=== PATIENT | female | born 1985 | race Caucasian/White ===

== ENCOUNTER 2019-09-03 19:20 | Emergency (ER) | payer BC, SELFPAY ==
[2019-09-03 19:25] VITALS: BP 127/89; PULSE 83; RESP 16; TEMP 36.7; O2SAT 99
--- NOTE | 2019-09-03 19:30 | DI.RAD_ITS ---
EXAM: XR CHEST 2V PA LATERAL CLINICAL HISTORY: cough TECHNIQUE: 2D digital imaging was performed. COMPARISON: No exams were available for comparison FINDINGS: MEDIASTINUM: Normal. HEART: Normal. PULMONARY VASCULATURE: Normal. LUNGS: Clear. PLEURAL SPACE: No pleural effusion or pneumothorax. BONE:Normal. OTHER FINDINGS:Normal. IMPRESSION: No acute pulmonary findings. DATA REPOSITORY: RADIATION DOSE DELIVERED:
--- NOTE | 2019-09-03 19:39 | W.ED.GENAD ---
Discharge Plan Disposition Patient Disposition: HOME Condition: Good Discharge Details Chief Complaint: RespSymp Clinical Impression: Viral URI with cough Primary Care Provider: Concha,Local ED Provider: Kaden Potter Home Meds and New Rx's Prescriptions: No Action No Known Home Meds RF: 0 Discharge Instructions Instructions: Upper Respiratory Infection (ED) Additional Instructions: Please take your inhaler, 2 puffs every 4-6 hours to help with her symptoms. At this time your symptoms are consistent with a viral upper respiratory infection. It is very unlikely that this is from coronavirus. At this time you do not have the indications that the CDC would recommend for testing for coronavirus. Out of an abundance of precaution it would be reasonable to self quarantine yourself for a total of 14 days or until completely symptom-free for greater than 24-48 hours. It would be prudent to wear a mask at all times, always wash your hands frequently, follow-up closely with your primary care provider. You can always call their office first. If you notice any worsening of your symptoms, or any new symptoms such as vomiting, diarrhea, fever, chills, shortness of breath, chest pain, numbness, weakness, or fainting, please CALL and then return immediately to the emergency department for reevaluation. Please CALL first and then follow up with your primary care provider as soon as possible for reassessment and reevaluation. As always, it was a pleasure participating in your medical care today. Stand Alone Forms: NEGATIVE COVID-19 SCREENING, Work Release Medical Decision Making <Lew Weiss MD - Last Filed: 09/03/19 19:45> This is a 33-year-old female who presents with day 5 of upper respiratory illness. She has had cough, congestion, feels as if she is had some mild shortness of breath. She had a history of reactive airway disease and use of inhaler as a child. She has not had recent travel or known sick contacts. Patient has normal vital signs temp of 36.7, pulse 83, blood pressure 127/89, respirations 16, 99% sat on room air. Her exam is without acute findings. Discussed with her that she would not not meet criteria at this time for Covid 19 testing. Different diagnosis includes viral syndrome, bronchitis, pneumonia. Patient underwent influenza screen, referred for chest x-ray, given albuterol MDI for her persistent cough and history of reactive airway disease. As the patient presented just prior to change of shift, and the case will be signed out to Dr. Potter. Please see his note regarding final impression and disposition. <Kaden Potter, DO - Last Filed: 09/03/19 21:12> Case was signed out to me by my colleague Dr. Lew Weiss. Please refer to his HPI, physical exam and assessment for plan. Patient was signed out pending x-ray results. X-ray results have returned, no evidence of infiltrate, no evidence of significant effusions, adenopathy, or pulmonary edema. Patient's vital signs remain notably reassuring. No evidence of hypoxemia, tachypnea, or significant respiratory distress. Currently the patient denies any concerning travel history to a high risk area, direct or known indirect exposure to an area and/or patient's with known coronavirus activity. The patient looks notably clinically well, and does not demonstrate evidence of respiratory distress, significant or severe illness, or sepsis. At this time with the patient's history, clinical exam, and clinical symptoms, they are not in line or congruent with current CDC recommendations for testing. Additionally patient currently does not demonstrate symptoms indicative of admission or further observation here. At this time based on the patient's current clinical picture symptoms are likely secondary to a non-coronavirus viral illness. Out of an abundance of precaution taking into account the current level of national concern, the patient's entire clinical picture, and CDC recommendations, the patient can be discharged home. The option and recommendation will be given for a 14-day quarantine. I have recommended to the patient wearing of a mask for the next 14 days, as well as good handwashing techniques. I have also recommended the same things to the patient's significant other who is at bedside. I have confirmed with her printing plate clerk we will try to get a PCP for the patient immediately. I did try to spend extra time explaining symptoms, prognosis, and concerning symptoms however the significant other who is at bedside made it exquisitely clear that he had no interest in hearing any additional information at this time and would like to leave immediately. Respecting his wishes we will discharge. I have extensively reviewed the treatment plan and discharge instructions with the patient. I have addressed all patient concerns at this time. The patient was made aware of what symptoms to monitor for that would warrant a return to the emergency department. I also discussed the importance of calling the patient's PCP, as well as the ED for any concerns or prior to return. Discussed the plan with the patient, they demonstrate verbal understanding and agreement with our assessment and plan at this time. FINDINGS: Lungs: Hyperinflation of the lungs bilaterally which is nonspecific and could represent air trapping from an upper respiratory infection or reactive airway disease. There are no peripheral infiltrates or consolidation. Pleural space: No pleural effusions. Heart/Mediastinum: No hilar fullness or mediastinal adenopathy suggested. Normal heart size. Bones/joints: Unremarkable. IMPRESSION: 1. Nonspecific lung field hyperinflation could represent upper respiratory infection or reactive airway disease. No peripheral infiltrates. 2. No pleural effusions. 3. No evidence of adenopathy. Thank you for allowing us to participate in the care of your patient. Dictated and Authenticated by: Russ Stephen MD 09/03/2019 7:59 PM Eastern Time ([place] & [place]) HPI <Lew Weiss MD - Last Filed: 09/03/19 19:45> General Mode of arrival: ambulatory. Date/Time Provider Initiated Documentation: 09/03/19 19:21. Limitations to Documentation: no limitations. Information obtained by: patient. History of Present Illness 33 year old F presents to the emergency department with the chief complaint of Cough for 5 days, feels short of breath, described as moderate, Quality is described as dull, Patient reports no radiation. Patient started experiencing this day(s) and it has been constant. No relieving factors improve symptom(s), No exacerbating factors reported . Patient notes cough, fever/chills, shortness of breath and other (No leg pain or swelling, no travel, no known sick contacts.). Related Data Home Medications Medication Instructions Recorded Confirmed Unknown [No Known Home Meds] 09/03/19 09/03/19 Allergies Allergy/AdvReac Type Severity Reaction Status Date / Time amoxicillin Allergy Hives Unverified 09/03/19 19:28 General Stated Complaint: RespSymp AUGUSTO: 4 Review of Systems <Lew Weiss MD - Last Filed: 09/03/19 19:45> Narrative: See HPI, 6 systems reviewed and otherwise negative Exam <Lew Weiss MD - Last Filed: 09/03/19 19:45> Narrative Exam Narrative: GEN: awake, alert, oriented 3. Pleasant, well groomed, interactive. HEAD: Normocephalic, atraumatic ENT: Mucous membranes moist, oropharynx unremarkable, External ear exam unremarkable EYES: PERRL, EOMI NECK: Full ROM, no DEVON, no menigismus CHEST/RESP: Nontender, clear to auscultation bilateral, no wheeze/rhonchi/rales CARDIOVASCULAR: RRR, no murmur, rub abraham. 2+ Rad pulse bilateral ABDOMEN: Soft, nontender, no mass. +Bowel sounds EXT: Full ROM, no edema, no rash Neuro: Grossly normal neurologic exam, conversant, interactive. Psych: Speech fluent, thoughts congruent, affect normal Course <Lew Weiss MD - Last Filed: 09/03/19 19:45> Vital Signs Vital signs: Vital Signs Temperature 36.7 C 09/03/19 19:25 Pulse 83 09/03/19 19:25 Respiratory Rate 16 09/03/19 19:25 Blood Pressure 127/89 09/03/19 19:25 Pulse Oximetry 99 09/03/19 19:25 Temperature 36.7 C 09/03/19 19:25 Temperature Source Skin 09/03/19 19:25 Pulse 83 09/03/19 19:25 Respiratory Rate 16 09/03/19 19:25 Blood Pressure 127/89 09/03/19 19:25 Blood Pressure Position Sitting 09/03/19 19:25 Pulse Oximetry 99 09/03/19 19:25 Pain Level 0 09/03/19 19:25 Sign Out <Lew Weiss MD - Last Filed: 09/03/19 19:45> Sign Out Data: Sign Out Comment: Follow-up chest x-ray, influenza screen Last updated by Lew Weiss MD at 09/03/19 19:45
[2019-09-03] MEDS: Albuterol HFA 8 GM 60 PUFF INH IH (19:42)
--- NOTE | 2019-09-03 20:00 | DI.VRAD_ITS ---
PROCEDURE INFORMATION: Exam: XR Chest, 2 Views Exam date and time: 09/03/2019 7:56 PM Age: 33 years old Clinical indication: Cough and shortness of breath; Patient HX: Cough; Per PT: SOB; Additional info: Symptoms since 08/28; No travel TECHNIQUE: Imaging protocol: XR of the chest Views: 2 views. COMPARISON: No relevant prior studies available. FINDINGS: Lungs: Hyperinflation of the lungs bilaterally which is nonspecific and could represent air trapping from an upper respiratory infection or reactive airway disease. There are no peripheral infiltrates or consolidation. Pleural space: No pleural effusions. Heart/Mediastinum: No hilar fullness or mediastinal adenopathy suggested. Normal heart size. Bones/joints: Unremarkable. IMPRESSION: 1. Nonspecific lung field hyperinflation could represent upper respiratory infection or reactive airway disease. No peripheral infiltrates. 2. No pleural effusions. 3. No evidence of adenopathy. Dictated and Authenticated by: Russ Stephen MD. Ordering:NIGHAT Hackett MD
[2019-09-03 21:00] VITALS: PULSE 77; RESP 15; O2SAT 100
--- NOTE | 2019-09-03 21:14 | NUR.NOTE ---
Pt reported starting to feel slight SOB after MD Potter in to discuss DC. Pt not visibly in respiratory distress., LSCTA, speaking in full sentences, RR15, RA sat 100% Discharge instructions reviewed in detail by MD Potter and with verbal understanding with RN. Ambulated to exit with steady gait.
== END 2019-09-03 21:00 | disposition home or self-care (01) ==
PROVIDERS: Emergency Provider Student in an Organized Health Care Education/Training Program
DX: J06.9 Acute upper respiratory infection, unspecified (principal); B34.9 Viral infection, unspecified; R05 Cough
CPT/HCPCS: 87449; 99283; 71046

== ENCOUNTER 2019-11-10 11:07 | Outpatient (REF) | payer BC, SELFPAY ==
--- NOTE | 2019-11-10 09:45 | PAPFT_PTH ---
PATIENT: Mildred Fisher LOC: [facility] U#:[id number] AGE/SX: 33/F ROOM: RE11/10/[address]: Twyla Bar, PhD [employer] : 1985 BED: DIS: 11/10/2019 SPEC #: [id number] RECD: 11/11/19 12:09 STATUS: JONNY REKarine #: [id number] DENISE: 11/10/19 09:[address]: Twyla Bar DEPT: ON LICENSE OF [facility] Cytology RECD BY: Elizabeth Barahona Tissues: 1 - CX/ENDOCX FOR PAP SMEARS Procedures: PAP THIN PREP/UVM Screening HPV DNA PROBE Comments: [id number] (CHLAMYDIA/GC)
[2019-11-10 20:12] LABS: Calculated LDL 72 mg/dL (<100); Cholesterol 175 mg/dL (<200); HDL Cholesterol 84 mg/dL (40-60); Triglyceride 99 mg/dL (<150)
[2019-11-14 15:42] LABS: Chlamydia Result Negative (Negative); GC Result Negative (Negative)
== END 2019-11-10 11:27 ==
LOC: LBN 11:07
PROVIDERS: PCP Nurse Practitioner; Visit Provider Nurse Practitioner
DX: J30.9 Allergic rhinitis, unspecified (principal); Z13.220 Encounter for screening for lipoid disorders; Z13.1 Encounter for screening for diabetes mellitus; Z11.3 Encounter for screening for infections with a predominantly sexual mode of transmission; Z12.4 Encounter for screening for malignant neoplasm of cervix; Z11.51 Encounter for screening for human papillomavirus (HPV)
CPT/HCPCS: 80061; 87491; 87591; 88142; 83036; 87624

== ENCOUNTER 2021-11-12 03:11 | Outpatient (CLI) | payer BC, SELFPAY ==
[2021-11-12 14:44] LABS: Kit/Specimen SENT
[2021-11-12 15:25] LABS: Abs Immature Grans 0.02 10^3/uL (0.0-0.06); Absolute Basophil Count 0.04 10^3/uL (0.0-0.2); Absolute Eosinophil Count 0.15 10^3/uL (0.0-0.7); Absolute Lymphocyte Count 2.15 10^3/uL (1.2-3.4); Absolute Monocyte Count 0.57 10^3/uL (0.1-0.8); Absolute Neutrophil Count 5.14 10^3/uL (1.2-6.7); Basophils % 0.5; Eosinophils % 1.9; HCT 38.4 % (36.0-46.0); HGB 12.5 g/dL (11.2-15.7); Immature Grans % 0.2; Lymphocytes % 26.6; MCH 30.1 pg (27.0-33.0); MCHC 32.6 % (32.0-36.0); MCV 93 fL (80-95); MPV 10.5 fL (8.0-11.0); Monocytes % 7.1; Neutrophils % 63.7; Platelet Count 310 10^3/uL (130-400); RBC 4.15 10^6/uL (3.93-5.22); RDW 11.9 % (11.7-14.6); RDW-SD 40.4 fL; WBC 8.07 10^3/uL (4.4-10.8)
[2021-11-12 15:51] LABS: *AMPHETAMINES SCREEN URINE Negative (Negative); *BARBITURATES SCREEN URINE Negative (Negative); *BENZODIAZEPINES SCREEN URINE Negative (Negative); Cannabinoids THC Negative (Negative); Cocaine Screen,Urine Negative (Negative); METHADONE URINE SCREEN Negative (Negative); OPIATES URINE SCREEN Negative (Negative)
[2021-11-12 15:53] LABS: Tricyclic Antidepressants Negative (Negative)
[2021-11-13 09:32] LABS: Hepatitis B Surface Ag Negative (Negative)
[2021-11-13 09:57] LABS: HIV-1/2 Ag & Ab Screen Negative (Negative)
[2021-11-13 10:33] LABS: Hepatitis C Ab w Rflx HCV PCR Negative (Negative)
[2021-11-13 11:33] LABS: Varicella IgG Antibody Positive (See Note)
[2021-11-13 11:38] LABS: Rubella IgG Ab (UVM) Positive (See Note)
[2021-11-14 18:10] LABS: Syphilis IgG w/Reflex Nonreactive (Nonreactive)
[2021-11-20 09:48] LABS: Buprenorphine Negative ng/mL (Cutoff: 5.0); Norbuprenorphine Negative ng/mL (Cutoff: 2.5)
[2021-11-26 03:14] LABS: Result Summary NEGATIVE; Specimen WB Whole Blood
== END 2021-11-12 03:12 | disposition home or self-care (01) ==
LOC: LBO 03:11
PROVIDERS: PCP Nurse Practitioner; Visit Provider Advanced Practice Midwife
DX: Z34.91 Encounter for supervision of normal pregnancy, unspecified, first trimester (principal); Z3A.10 10 weeks gestation of pregnancy
CPT/HCPCS: 36415; 80307; 86787; 86803; 86850; 86900; 86901; 87340; 87389; 81220; 85025; 86762; 86780; 87086

== ENCOUNTER 2022-03-06 03:54 | Outpatient (CLI) | payer BC, SELFPAY ==
[2022-03-06 13:58] LABS: HCT 34.8 % (36.0-46.0); HGB 11.9 g/dL (11.2-15.7); MCH 30.6 pg (27.0-33.0); MCHC 34.2 % (32.0-36.0); MCV 90 fL (80-95); MPV 10.4 fL (8.0-11.0); Platelet Count 263 10^3/uL (130-400); RBC 3.89 10^6/uL (3.93-5.22); RDW 12.9 % (11.7-14.6); WBC 9.24 10^3/uL (4.4-10.8)
[2022-03-06 14:15] LABS: Glucose,1 Hr (Glucola) 104 mg/dL (80-140)
== END 2022-03-06 03:55 | disposition home or self-care (01) ==
LOC: LBO 03:54
PROVIDERS: PCP Nurse Practitioner; Visit Provider Advanced Practice Midwife
DX: Z34.92 Encounter for supervision of normal pregnancy, unspecified, second trimester (principal)
CPT/HCPCS: 36415; 82950; 85027

== ENCOUNTER → 2022-04-16 01:56 | Outpatient (CLI) | payer BC, SELFPAY ==
--- NOTE | 2022-04-16 08:00 | DI.US_ITS ---
Exam(s) US OB ALYSSIA WEIGHT EXAM: US OB ALYSSIA WEIGHT CLINICAL HISTORY: covid infection during ,U07.1,O98.513 TECHNIQUE: Ultrasound performed using standard protocol. COMPARISON: No exams were available for comparison FINDINGS: Ob ultrasound was performed utilizing 3rd trimester protocol. biometry is consistent with a ge stational age of 33 weeks 1 day and EDC of June 03. Estimated weight is 2096 grams which is at the 49th percentile for predicted gestational age. Placenta is anterior with no placenta previa. Fetus is in cephalic presentation. heart rate i s 140 BPM. Amniotic fluid index is 12 and there is visually a normal quantity of amniotic fluid. IMPRESSION: DATA REPOSITORY:
== END ==
PROVIDERS: PCP Nurse Practitioner Family; Visit Provider Advanced Practice Midwife
DX: O98.513 Other viral diseases complicating pregnancy, third trimester (principal); U07.1 COVID-19
CPT/HCPCS: 76816

== ENCOUNTER 2022-05-14 15:48 | Outpatient (REF) | payer BC, SELFPAY ==
[2022-05-14 17:07] LABS: *AMPHETAMINES SCREEN URINE Negative (Negative); *BARBITURATES SCREEN URINE Negative (Negative); *BENZODIAZEPINES SCREEN URINE Negative (Negative); Cannabinoids THC Negative (Negative); Cocaine Screen,Urine Negative (Negative); METHADONE URINE SCREEN Negative (Negative); OPIATES URINE SCREEN Negative (Negative)
[2022-05-14 17:09] LABS: Tricyclic Antidepressants Negative (Negative)
[2022-05-22 11:09] LABS: Buprenorphine Negative ng/mL (Cutoff: 5.0); Norbuprenorphine Negative ng/mL (Cutoff: 2.5)
== END 2022-05-14 15:49 | disposition home or self-care (01) ==
LOC: LBN 15:48
PROVIDERS: PCP Nurse Practitioner Family; Visit Provider Advanced Practice Midwife
DX: Z34.93 Encounter for supervision of normal pregnancy, unspecified, third trimester (principal); Z36.85 Encounter for antenatal screening for Streptococcus B; Z3A.36 36 weeks gestation of pregnancy
CPT/HCPCS: 80307; 80348; 87081

== ENCOUNTER 2022-06-13 07:38 | Outpatient (CLI) | payer BC, SELFPAY ==
[2022-06-13 09:17] VITALS: BP 119/82; PULSE 76; TEMP 37.2
[2022-06-13 09:26] VITALS: BP 119/82; PULSE 76; TEMP 37.2
--- NOTE | 2022-06-13 11:11 | W.OBNST ---
Date of service: 06/13/22 Time of Service: 11:12 NST Evaluation Reason for NST Reasons for Nonstress Test: POSTDATES Gestational Age Gestational Age in Weeks and Days: 41 Weeks and 0Days Test and Monitor Explained Test/Monitor Explained: Test Explained, Monitor Explained and Patient Verbalized Understanding Vital Signs Blood Pressure: 119/82 Pulse: 76 Temperature: 99 F NST Information Time on Monitor: 09:22 Date off Monitor: 06/13/22 Time off Monitor: 09:49 NST Interventions: PO Hydration NST Evaluation Patient States Movement: Present FHR Baseline: 140 Variability: Moderate 6-25 bpm Accelerations: 15x15 Decelerations: None NST Results: Reactive Note ALYSSIA (for postdates) Results of ALYSSIA: 11.0 NST Note Note: Pt will return to for induction of labor on 06/17 and maternal wellbeing verified today Cvx unfavorable at cl/50% posterior, LOP -4, intact membranes Sx labor reviewed, exercises for OP position demonstrated NST Reviewed and Verified by: Angela Mccoy Pocus Exam Limited OB Exam DATE OF EXAM:: 06/13/22 TIME OF EXAM:: 11:13 PROVIDER THAT PERFORMED THE STUDY: Angela Mccoy IS THIS A REPEAT EXAM DURING THIS ENCOUNTER: No Type of Exam: Pelvic OB Trans Abdominal (Amniotic Fluid Index only) REASON FOR EXAM: other indication: Postdates Exam Complete. DIFFERENTAL DIAGNOSES: ALYSSIA is 11.0 (adequate)
[2022-06-13 11:16] VITALS: BP 119/82; PULSE 76; TEMP 37.2
== END 2022-06-13 10:34 | disposition home or self-care (01) ==
LOC: BCD 07:41 → OBS 09:15
PROVIDERS: PCP Nurse Practitioner Family; Visit Provider Advanced Practice Midwife
DX: O48.0 Post-term pregnancy (principal); Z3A.41 41 weeks gestation of pregnancy
CPT/HCPCS: 59025

== ENCOUNTER 2022-06-13 21:36 | Inpatient (IN) | payer BC, SELFPAY ==
[2022-06-13 22:07] VITALS: BP 133/76; PULSE 82; RESP 16; TEMP 37
[2022-06-13 22:34] VITALS: BP 133/76; PULSE 82; RESP 16; TEMP 37
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
[2022-06-13 23:13] LABS: HCT 34.7 % (36.0-46.0); HGB 11.6 g/dL (11.2-15.7); MCH 30.1 pg (27.0-33.0); MCHC 33.4 % (32.0-36.0); MCV 90 fL (80-95); MPV 12.5 fL (8.0-11.0); Platelet Count 181 10^3/uL (130-400); RBC 3.85 10^6/uL (3.93-5.22); RDW 12.7 % (11.7-14.6); RDW-SD 41.8 fL; WBC 8.08 10^3/uL (4.4-10.8)
[2022-06-13 23:17] LABS: Source Nasal/Nares
[2022-06-13 23:49] LABS: COVID-19 PCR Negative (Negative)
[2022-06-14] VITALS (83 sets, daily range): BP systolic 100–163; BP diastolic 56–96; PULSE 68–109; RESP 16–18; TEMP 36.2–36.9; O2SAT 96–100; BMI 27.2
--- NOTE | 2022-06-14 07:59 | W.PM.OBNL1 ---
Date of service: 06/14/22 Time of Service: 07:59 Informed Consent Informed Consent: Induction of Labor and Risk,Benefits,Alternatives Discussed Pelvic Exam Dilation: 1 Effacement (%): 70 station: -3 Position: LOP Cervix Position: posterior Consistency: soft BISHOPS Score(Cervical Ripeness Score): 5 Contractions Monitor Mode: External Contraction Frequency(min): irreg Intensity: Mild Fetus A Monitor: External (US) Heart Rate Baseline: 130 Variability: Moderate (6-25 BPM) Categories: Category I Accelerations: Present Decelerations: None Amniotic Membrane Status: Ruptured Assessment and Plan Assessment and plan (1) Ruptured, membranes, premature: Status: Acute Assessment and plan: A: PROM at term, primipara No active labor, spontaneous prodromal sx noted Category 1 tracing, GBS neg, afebrile P: R&B of care pl an options dicussed Reviewed IOL via cervial ripening vs pitocin induction Recommended misoprostel admin initially and balloon catheter insertion Pt declines catheter at thit time, accepts misoprostel by guidelines Will re-assess for pitocin infusion at noon Objective Abnormal lab results 06/13/22 Range/Units 23:00 RBC 3.85 L (3.93-5.22) 10^6/uL Hct 34.7 L (36.0-46.0) % MPV 12.5 H (8.0-11.0) fL Temp Pulse Resp BP 98.4 F 71 18 126/73 06/14/22 07:16 06/14/22 07:16 06/14/22 07:16 06/14/22 07:16 Laboratory Results WBC 8.08 10^3/uL (4.4-10.8) 06/13/22 23:00 RBC 3.85 10^6/uL (3.93-5.22) L 06/13/22 23:00 Hgb 11.6 g/dL (11.2-15.7) 06/13/22 23:00 Hct 34.7 % (36.0-46.0) L 06/13/22 23:00 MCV 90 fL (80-95) 06/13/22 23:00 MCH 30.1 pg (27.0-33.0) 06/13/22 23:00 MCHC 33.4 % (32.0-36.0) 06/13/22 23:00 RDW 12.7 % (11.7-14.6) 06/13/22 23:00 Plt Count 181 10^3/uL (130-400) 06/13/22 23:00 MPV 12.5 fL (8.0-11.0) H 06/13/22 23:00 COVID-19 Source Nasal/Nares 06/13/22 23:00 SARS-CoV-2 (PCR) Negative (Negative) 06/13/22 23:00 Patient ABO/Rh A Positive 06/13/22 23:00 Antibody Screen NEGATIVE 06/13/22 23:00 Vital Signs Reviewed: Yes Subjective Patient Reports: No new Complaints Interval history since last seen: Slept well through the night, up now and showered, ordered breakfast, noticed pink tinge to vaginal fluids this morning.
[2022-06-14] MEDS: miSOPROStol 50 MCG TAB PO (08:12)
--- NOTE | 2022-06-14 11:48 | W.PM.OBNL1 ---
Date of service: 06/14/22 Time of Service: 11:48 Informed Consent Informed Consent: Regional Anesthesia and Risk,Benefits,Alternatives Discussed Pelvic Exam Dilation: 2 Effacement (%): 90 station: -2 Position: LOP Cervix Position: mid Consistency: soft BISHOPS Score(Cervical Ripeness Score): 8 Fetus A Monitor: Doppler Heart Rate Baseline: 130 FHR Rhythm: Regular Characteristics: Normal Accelerations: Present Decelerations: None Amniotic Membrane Status: Ruptured Assessment and Plan Assessment and plan (1) Ruptured, membranes, premature: Status: Acute Assessment and plan: A: IOL for PROM at term Mane score advanced to 8 Requests epidural for pain management P: BUSINESS DEVELOPMENT SALES EXECUTIVE paged and enroute IV initiated Will consider pitocin infusion once pt comfortable Dr. Degroot aware of pt status, available for consultation as needed Anticipate Objective Objective Narrative Objective Narrative: Pt breathless, breathing hard with q 3 min contractions FOB at pt's side providing effective support Discussed various comfort measures, pt declines Desires regional anesthesia Category 1 tracing Subjective Interval history since last seen: Contractions now painful and frequent, can hardly catch her breath, has showered, sitting on physioball, declines tub or nitrous, requests epidural anesthesia.
--- NOTE | 2022-06-14 12:15 | W.ANESPRE ---
General Info Date of Service Date Performed: 06/14/22 Height: 5 ft 7 in Weight: 78.925 kg Body Mass Index (BMI): 27.2 Meds Allergies and Home Medications Allergies Allergy/AdvReac Type Severity Reaction Status Date / Time amoxicillin Allergy Hives Verified 06/05/22 14:44 horses Allergy Intermediate Uncoded 06/05/22 14:44 Home Medication Medication Instructions Recorded cetirizine 10 mg capsule (Zyrtec) 10 mg PO DAILY PRN 10/25/21 magnesium 200 mg tablet See Rx Instructions PO DAILY PRN 04/30/22 vitamins with calcium 1 tab PO DAILY #90 tabs 05/19/22 no.72-iron 29 mg-folic acid 1 mg tablet ( Plus) Current Visit Medications: Current Medications Generic Name Dose Route Start Last Admin Trade Name Freq PRN Reason Stop Dose Admin Ephedrine Sulfate 5 mg 06/14/22 12:13 Ephedrine 50 Mg/Ml Vial IVP DIRECTED PRN Ringer's Solution 250 mls @ 500 mls/hr 06/14/22 12:13 IV 06/14/22 12:42 BOLUS ONE Naloxone HCl 0 mg 06/14/22 12:13 Naloxone 0.4 Mg/Ml Vial IVP DIRECTED PRN Terbutaline Sulfate 0.25 mg 06/14/22 07:58 Terbutaline 1 Mg/Ml Vial SC PRN PRN Zolpidem Tartrate 5 mg 06/13/22 22:55 Zolpidem 5 Mg Tab PO HS PRN PRN PFSH Active Problems Active Problems: Problem Status Onset Code Ruptured, membranes, premature O42.90 COVID-19 affecting in third trimester O98.513, U07.1 Chronic left hip pain M25.552, G89.29 Z34.90 Allergic rhinitis J30.9 Medical History Medical History 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 H/O staphylococcal pneumonia Hospitalized at age 7 Rotator cuff impingement syndrome of left shoulder Tobacco Smoking/Tobacco Use Status: Never Passive smoking exposure: Yes Alcohol Alcohol Intake: current Alcohol intake frequency: 0-2 drinks per day Prental History History 1 Para 0 Hx # Term Pregnancies 0 Multiple births 0 Hx # Pregnancies 0 Ectopic pregnancies 0 AB induced 0 Hx Number of Living Children 0 AB spontaneous 0 Vital Signs and Lab Results Vital Signs Most Recent Vital Signs in EMR: Most Recent Vital Signs Temp Pulse Resp BP Pulse Ox 36.9 C 78 18 134/88 98 06/14/22 11:04 06/14/22 12:08 06/14/22 09:11 06/14/22 12:08 06/14/22 12:07 Lab Results Result Diagrams: 06/13/22 23:00 Blood Type / Crossmatch: Patient ABO/Rh A Positive 06/13/22 Antibody Screen NEGATIVE 06/13/22 Complete Blood Count: White Blood Count 8.08 10^3/uL (4.4-10.8) 06/13/22 23:00 Red Blood Count 3.85 10^6/uL (3.93-5.22) L 06/13/22 23:00 Hemoglobin 11.6 g/dL (11.2-15.7) 06/13/22 23:00 Hematocrit 34.7 % (36.0-46.0) L 06/13/22 23:00 Platelet Count 181 10^3/uL (130-400) 06/13/22 23:00 Complete Metabolic Panel: No Data to Display Liver Function Panel: No Data to Display Coagulation Panel: No Data to Display Cardiac Panel: No Data to Display Arterial Blood Gas: No Data to Display Venous Blood Gas: No Data to Display Pancreas Panel: No Data to Display Thyroid Panel: No Data to Display Infectious Disease: Coronavirus (COVID-19)(PCR) Negative (Negative) 06/13/22 23:00 Coronavirus 2019 Source Nasal/Nares 06/13/22 23:00 Blood Cultures: No Data to Display Toxicology Panel: No Data to Display Panel: No Data to Display Anesthesia Assessment and Plan Anesthesia History Personal History: No History of Anesthesia Complications Family History: No Family History of Anesthesia Complications Exercise Tolerance Exercise Tolerance: Metabolic Equivalents>4 Pertinent Negatives Pertinent Negatives: No Symptoms of GERD, No Major Cardiovascular Symptoms or Complaints, No Major Pulmonary Symptoms or Complaints and No History of CVA/TIA Cardiac & Pulmonary Exam Cardiac Exam: Normal S1/S2 Heart Sounds Pulmonary Exam: Clear Bilateral Breath Sounds Implantable Cardiac Device Does patient have a Pacemaker or an ICD?: No Airway Exam Known Difficult Airway: No Mallampati Class: 3 Mouth Opening: Normal (> 3cm) Thyromental Distance: Greater than 3 cm Neck Range of Motion: Full ROM Neck Circumference: Normal Teeth Condition: Normal Dentition ASA Classification ASA Score: ASA 2 Emergency Case?: No NPO Status NPO Status: Full Stomach Status Status: Confirmed Anesthesia Plan Resuscitation Status: Full Code Anesthesia Technique: Epidural Anesthesia Airway Planned: Natural Airway Pain Management: Surgeon and patient request nerve block Monitors Used: Standard Monitors Preoperative Comments:: Remote history of one seizure as a child.
[2022-06-14] MEDS: Lactated Ringers 250 ML 500 ML IV (12:25)
[2022-06-14] MEDS: FentaNYL/ROPIvacaine 2 mcg/ml and 0.1% 200 ML CADD Cassette EP (12:50)
--- NOTE | 2022-06-14 12:57 | W.ANESNEU ---
Epidural/Spinal Catheter Date Performed: 06/14/22 Procedure Start: 12:38 Procedure Stop: 12:43 Requesting Provider: Angela Mccoy Procedure Location: Obstetrics Reason Performed: Labor Epidural Standard Monitors Applied: Blood Pressure and SpO2 Patient Position: Sitting Sedation Given (Indicate Dose Given): No Sedation given Patient Mental Status: Awake Sterility: Hand Hygiene, Surgical Cap, Surgical Mask, Sterile Gloves, Sterile Drape/Sheet and Chlorhexidine Procedure Location: L3-L4 Interspace Epidural Needle: Tuohy 17 Guage Needle Length: 3.5 Inch Needle Approach: Midline Epidural Procedure: Skin Prepped, Sterile Drape Placed, 1% Lidocaine to skin and subcutaneous tissue with 25G needle, Tuohy Needle placed, MARIANNA to Saline Used, Epidural Catheter Placed, Negative Heme, Negative CSF Flow and Tuohy Needle Removed Catheter Placed?: Catheter Placed Test Dose (Indicate Dose Given): 5ml 1.5% Lidocaine with 1:200K Epinephrine Given and Negative Test Dose Loss of Resistance Depth (cm): 7 Catheter depth at skin (cm): 13 Dressing: Sorbaview Dressing Placed, Mastisol Used and Dressing reinforced with Tape Epidural Provider Bolus (Indicate Dose Given): Total Ropivacaine 0.1% with Fentanyl 2mcg/ml Given from pump. (ml) Dose:: 8 ml Additives (Indicate Dose Given ): None Infusion Medication: Medication Infusion Began Medication Infusion: Ropivacaine 0.1% with Fentanyl 2mcg/ml Maintenance Infusion Rate (ml/hour): 10 PCEA Bolus Dose (ml): 5 Block Level: T8 Paresthesia: Left Paresthesia Duration: Transient Ultrasound: Not Used Number of Attempts (See previous attempts in note section): 1 Procedure Tolerated: No Complications and Patient tolerated well Procedure Outcome: Successful Procedure Comment:: Reported numbness and heaviness to the left almost immediately. Performed By: Tobias Rayo
[2022-06-14] MEDS: Lactated Ringers 1,000 ML 125 ML IV (13:00)
--- NOTE | 2022-06-14 14:46 | W.ANESNEU ---
Epidural/Spinal Cath. Removal Date Performed: 06/14/22 Procedure Time: 14:17 Catheter Removal Type: Epidural Catheter Procedure Location: Obstetrics Patient Position: Sitting Catheter Removal Procedure: Dressing Removed, Catheter Removed without Resistance and Catheter Tip Intact Paresthesia: None Procedure Tolerated: No Complications Procedure Outcome: Successful Performed By: Tobias Rayo
--- NOTE | 2022-06-14 14:47 | W.ANESNEU ---
Epidural/Spinal Catheter Date Performed: 06/14/22 Procedure Start: 14:22 Procedure Stop: 14:38 Requesting Provider: Angela Mccoy Procedure Location: Obstetrics Reason Performed: Labor Epidural Standard Monitors Applied: Blood Pressure and SpO2 Patient Position: Sitting Sedation Given (Indicate Dose Given): No Sedation given Patient Mental Status: Awake Sterility: Hand Hygiene, Surgical Cap, Surgical Mask, Sterile Gloves, Sterile Drape/Sheet and Chlorhexidine Procedure Location: L4-L5 Interspace Epidural Needle: Tuohy 17 Guage Needle Length: 3.5 Inch Needle Approach: Midline Epidural Procedure: Skin Prepped, Sterile Drape Placed, 1% Lidocaine to skin and subcutaneous tissue with 25G needle, Tuohy Needle placed, MARIANNA to Saline Used, Epidural Catheter Placed, Negative Heme and Negative CSF Flow Catheter Placed?: Catheter Placed Test Dose (Indicate Dose Given): 5ml 1.5% Lidocaine with 1:200K Epinephrine Given and Negative Test Dose Loss of Resistance Depth (cm): 8 Catheter depth at skin (cm): 13 Dressing: Sorbaview Dressing Placed, Mastisol Used and Dressing reinforced with Tape Epidural Provider Bolus (Indicate Dose Given): Total Bupivacaine 0.25% Given (ml) Dose:: 4 ml Additives (Indicate Dose Given ): None Infusion Medication: Medication Infusion Began Medication Infusion: Ropivacaine 0.1% with Fentanyl 2mcg/ml Maintenance Infusion Rate (ml/hour): 12 PCEA Bolus Dose (ml): 6 Block Level: T10 Paresthesia: None Ultrasound: Not Used Number of Attempts (See previous attempts in note section): 2 Procedure Tolerated: No Complications and Patient tolerated well Procedure Outcome: Successful Procedure Comment:: Previous epidural catheter removed due to lack of block set up and after extensive discussion with patient and spouse. Second attempt. Placed one level lower (L4/5). Easy placement with distinct MARIANNA. Performed By: Tobias Rayo
[2022-06-14] MEDS: Oxytocin/Normal Saline 30 UNIT/500 ML BAG 2 UNITS IV (15:39)
--- NOTE | 2022-06-14 15:59 | W.PM.OBNL1 ---
Date of service: 06/14/22 Time of Service: 15:59 Pelvic Exam Dilation: 5 Effacement (%): 90 station: -2 Cervix Position: anterior Contractions Monitor Mode: External Contraction Frequency(min): 2-4 Intensity: Moderate Fetus A Monitor: External (US) Heart Rate Baseline: 135 Variability: Moderate (6-25 BPM) Categories: Category II CategoryII Plan of Care: Intrauterine Resuscitation (6 minute decel, FSE placed, pt to H&K with head down, 02 permask applied, IVF bolus of 200 ml given with resolution backe to baseline), Observation, Reassess, Medical Consult (Dr. Degroot paged and notified of prolonged decel event) and Continuous Monitoring/Observation Decelerations: Prolonged (isolated, wanda in 60's bpm, 6 minutes then return to baseline) Amniotic Membrane Status: Ruptured Assessment and Plan Assessment and plan (1) Ruptured, membranes, premature: Status: Acute Assessment and plan: A: Active labor, epidural anesthesia Has progressed to 5 cm dilation Prolonged decel x6 min event x1, responsive to intrauterine resus P: Dr. Degroot notified pt FHT status FHT has returned to moderate variability and 130-140 baseline Will continue EFM, FSE in place, insert IUPC Objective Vital Signs Reviewed: Yes Subjective Interval history since last seen: epidural is providing excellent relief, was dozing off a bit.
[2022-06-14] MEDS: Terbutaline 1 MG/ML VIAL 0.25 MG SC (17:05)
[2022-06-14] MEDS: AZITHROMYCIN 500 MG in Normal Saline 250 ML 250 MG IVPB (17:20)
[2022-06-14] MEDS: Sodium Citrate 30 ML CUP PO (17:21)
[2022-06-14] MEDS: ceFAZolin 2 GM/50 ML BAG IVPB (18:14)
[2022-06-14] MEDS: Bupivacaine 0.25% Pres-Free 30 ML VIAL (18:22)
--- NOTE | 2022-06-14 18:54 | OBCE_ITS ---
Date of service: 06/14/22 Time of Service: 18:54 Assessment and Plan Assessment and plan (1) Non-reassuring heart rate or rhythm affecting management of mother: Status: Acute Assessment and plan: Patient has had prolonged rupture of membranes and active labor had nonreassuring status. She had a category 2 strip with overall good variability and deep variable decelerations. Due to these factors, decision was made to proceed to section. Full informed consent was obtained and risk benefits and alternatives had been discussed Preoperative antibiotics including Ancef and Zithromax and be taken the operating suite. Anesthesia and or crew was notified and present for delivery. (2) Ruptured, membranes, premature: Status: Acute (3) : Status: Chronic History of Present Illness History of Present Illness Chief Complaint: intolerance of labor Narrative: Kindly asked to see in consultation this 36-year-old female primigravida at 41 weeks gestation. She presented to the center late yesterday with spontaneous rupture of membranes for clear fluid. She progressed into the labor and received an epidural for pain control. After epidural placement, her contraction pattern has somewhat slowed and Pitocin augmentation was begun shortly thereafter she had a episode of bradycardia to the 60s for approximately 6 minutes. All of the appropriate intrauterine resuscitative measures were performed and heart rate tracing returned to the 130s with moderate variability. I was called to see the patient due to being at 5 cm, remote from delivery with bradycardic episode. Upon my arrival patient was in hands and knees position with heart rate tracing in the 130s with good variability. She would have sudden spontaneous decelerations to the 60s for approximately 1 to 2 minutes. In light of this and remote from delivery the decision was made for section. Risk benefits and alternatives have been discussed with the patient and her in full informed consent was obtained. All questions were answered. Consults Consult date: 06/14/22 Requesting physician: Angela Mccoy [facility] All Active Problems (Updated 06/14/22 @ 18:58 by Terri Degroot DO) Non-reassuring heart rate or rhythm affecting management of mother (Acute) Ruptured, membranes, premature (Acute) COVID-19 affecting in third trimester (Acute) Chronic left hip pain (Acute) (Chronic) Allergic rhinitis (Acute) Medical History 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 H/O staphylococcal pneumonia Hospitalized at age 7 Rotator cuff impingement syndrome of left shoulder Family History Mother No problems noted. Father Heart disease Hypertension Sister Depression Maternal Grandfather , 80s Stroke Paternal Grandfather , 80s Stroke Aneurysm Maternal Grandmother , age 94 Non Hodgkin's lymphoma Paternal Grandmother , age 90 No problems noted. Self Asthma related to exposure to horses Social History Smoking/Tobacco Use Status: Never Smoking risk assessment performed?: Yes Alcohol Intake: current Alcohol Intake frequency: 0-2 drinks per day Caregiver/Support person: No Household members: significant other Housing: house Communication Needs: None Do you need help understanding health information?: Rarely Pets and animals: Yes Pets and animals: dog(s) Sexually active: Yes Do you think of yourself as: straight/heterosexual Current gender identity: female What is your relationship status?: living with partner How often do you talk on the phone with friends or family?: once per week How often do you get together with friends or relatives?: twice per week How often do you attend catholic or restorationist services?: 1-3 times per year Do you belong to any clubs or organized social groups?: yes Panel score (0-1 are the most socially isolated patients): 3 What type of physical activity do you participate in: bicycling and running Duration: 30-45 minutes/day Frequency: 3-4 times per week Lay/Baptism: No preference Special lay needs: No Seatbelt use: always Helmet use: Yes Helmet use: always Drive intox or ride w/intox driver guide: No Do you feel safe at home: Yes Do you feel safe in your relationship?: Yes Female Reproductive History Menstrual Age of Menarche: 15 History History 1 Para 0 Hx # Term Pregnancies 0 Multiple births 0 Hx # Pregnancies 0 Ectopic pregnancies 0 AB induced 0 Hx Number of Living Children 0 AB spontaneous 0 Exam Narrative Exam Narrative: Alert oriented no acute distress Resp Effort & Inspection: normal respiratory effort, no audible wheezes, no cough and not labored Cardio Rate: regular rate Rhythm: regular rhythm Heart Sounds: S1 normal and S2 normal Manual OB Exam: dilated 5, effaced 75% and station 0 Amniotic Fluid: clear Skin General skin exam: no rashes or lesions noted Extrem General: normal to inspection Results Last Vital Signs Temp 97.9 F 06/14/22 16:00 Pulse 109 H 06/14/22 17:24 Resp 18 06/14/22 09:11 BP 129/71 06/14/22 17:24 Pulse Ox 100 06/14/22 15:47 Labs Result diagrams: 06/13/22 23:00 Labs: Laboratory Results - last 24 hr 06/13/22 06/13/22 06/13/22 23:00 23:00 23:00 WBC 8.08 RBC 3.85 L Hgb 11.6 Hct 34.7 L MCV 90 MCH 30.1 MCHC 33.4 RDW 12.7 Plt Count 181 MPV 12.5 H COVID-19 Source Nasal/Nares SARS-CoV-2 (PCR) Negative Patient ABO/Rh A Positive Antibody Screen NEGATIVE
--- NOTE | 2022-06-14 18:59 | PDOC.OPNB_ITS ---
Date of service: 06/14/22 Time of Service: 18:59 Operative Note Operative Note Delivery Method: Unscheduled STAT: No and Primary NTSV>37 Weeks: Yes DATE OF PROCEDURE: 06/14/22 PRE-OP DIAGNOSES: at 40 weeks gestation. Prolonged rupture of membranes. Nonreass PROCEDURE: Primary low-transverse section SURGEON: Terri Degroot Chief Solution Architect: Angela Mccoy Anesthesia: local and spinal Estimated blood loss (mL): 300 Pathology: none sent Complications: None Patient was transported to: floor Patient's condition: stable Indications: Nonreassuring status Findings: Delivery of a viable female with Apgars of 8 and 9 from the left occiput posterior position with nuchal, body, and leg cord normal-appearing tubes, ovaries, uterus. Procedure Description: After full informed consent was obtained, patient was transported to the operating room in knee-chest position. She was then placed in the seated position on the operative table. heart tones were auscultated in the 150s. Her previous epidural catheter was removed and spinal anesthesia administered per anesthesia. She was then placed in the dorsal supine position with a leftward tilt and prepped and draped in the usual sterile fashion. She received 2 g of Ancef and 500 mg of Zithromax intravenously and had a vaginal preparation. Grullon catheter was inserted for continuous bladder drainage. Pneumatic compression stockings were placed for prevention of DVTs. She was then placed in the dorsal supine position with a leftward tilt prepped and draped in usual sterile fashion. Pfannenstiel skin incision was made carried down to the underlying fascia which was nicked in the midline and extended laterally. The rectus muscles were split in the midline peritoneum identified tented up and entered sharply and a bladder blade was inserted. The ve sicouterine peritoneum was identified tented up and the bladder flap created. Bladder blade was reinserted pushing the bladder lower away from the lower uterine segment. With a scalpel a low transverse uterine incision was made and extended bluntly laterally. The vertex was delivered without difficulty. There was evidence of a nuchal cord and upon delivery of body cord and cord wrapped around 1 leg. Three-vessel cord was noted clamped x2 and after approximately 60 seconds cut. The baby was then handed to the waiting business services sales agent. At this point cord blood sample and cord blood gases were both obtained and placenta was manually expressed from the uterus. The uterus was exteriorized and cleared of all clot and debris. The uterine incision was closed using 0 Vicryl suture in a 2 layer closure, the first being running locked and second being imbricating. The uterus was then returned to the abdomen, abdomen irrigated with copious amounts of normal saline and the uterine incision reinspected and found to be hemostatic. At this point the fascial incision was closed using 0 Vicryl suture in running fashion. Subcutaneous tissue was infiltrated with half percent plain and Marcaine and subcu space reapproximated with 3-0 Vicryl in a simple interrupted fashion. Skin edges reapproximated with a subcuticular stitch of 4-0 undyed Monocryl. Steri-Strips and sterile dressing were placed. Patient tolerated the procedure without difficulty and she was taken back to the center with a Grullon catheter draining clear yellow urine. Complications: None apparent EBL: 300 mL Fluids: Crystalloid per anesthesia Findings: Normal-appearing tubes, ovaries, uterus. Delivery of a viable female with Apgars of 8 and 9.
[2022-06-15 01:41] VITALS: BP 110/72; PULSE 79
[2022-06-15] MEDS: Ketorolac 30 MG/ML VIAL IVP ×3 (01:48→13:52)
[2022-06-15] MEDS: Normal Saline Flush 10 ML SYR IVP ×2 (01:49→07:49)
[2022-06-15 06:56] LABS: Abs Immature Grans 0.04 10^3/uL (0.0-0.06); Absolute Eosinophil Count 0.04 10^3/uL (0.0-0.7); Absolute Lymphocyte Count 1.87 10^3/uL (1.2-3.4); Absolute Monocyte Count 0.97 10^3/uL (0.1-0.8); Basophils % 0.3; Eosinophils % 0.3; HCT 30.8 % (36.0-46.0); HGB 10.4 g/dL (11.2-15.7); Immature Grans % 0.3; Lymphocytes % 15.8; MCH 30.5 pg (27.0-33.0); MCHC 33.8 % (32.0-36.0); MCV 90 fL (80-95); MPV 12.7 fL (8.0-11.0); Monocytes % 8.2; Neutrophils % 75.1; Platelet Count 147 10^3/uL (130-400); RBC 3.41 10^6/uL (3.93-5.22); RDW 13.1 % (11.7-14.6); RDW-SD 43.3 fL; WBC 11.85 10^3/uL (4.4-10.8)
[2022-06-15 07:00] LABS: Absolute Basophil Count 0.04 10^3/uL (0.0-0.2)
[2022-06-15 07:50] VITALS: BP 115/77; PULSE 80; TEMP 36.9; O2SAT 98
--- NOTE | 2022-06-15 08:03 | W.PM.OBPNV1 ---
Date of service: 06/15/22 Time of Service: 08:03 Assessment and Plan Assessment and plan (1) Status post primary low transverse section: Status: Acute Assessment and plan: Postoperative day #1 status post primary low-transverse section. Doing well. Stable vital signs. Hemoglobin stable at 10.4. Will ambulate, Grullon catheter out today. Subjective Subjective Interval history: Patient seen and examined this morning. Doing well. All events of yesterday discussed at length. Working on breast-feeding. Will ambulate today. Shower today. Grullon catheter out this morning. Exam Physical Exam Vital signs: Temp Pulse Resp BP Pulse Ox 97.5 F L 79 16 110/72 96 06/14/22 18:57 06/15/22 01:41 06/14/22 18:57 06/15/22 01:41 06/14/22 21:22 Vital Signs Reviewed: Yes Constitutional Constitutional: no acute distress Respiratory Exam Respiratory Exam: Normal Cardiovascular Exam Cardiovascular Exam: Normal Abdominal Exam Comments: Soft nontender Fundal Exam Fundus: Below Umbilicus and Firm Extremities Exam Extremity Exam: Normal; negative Calf Tenderness Results Hemoglobin/Hematocrit: Hgb 10.4 g/dL (11.2-15.7) L 06/15/22 06:35 Hct 30.8 % (36.0-46.0) L 06/15/22 06:35 Abnormal Lab Findings: Abnormal Labs 06/13/22 06/15/22 23:00 06:35 WBC 11.85 H RBC 3.85 L 3.41 L Hgb 10.4 L Hct 34.7 L 30.8 L MPV 12.5 H 12.7 H Absolute Neutrophils 8.90 H Absolute Monocytes 0.97 H
[2022-06-15] MEDS: Docusate Sodium 100 MG CAP PO (15:30)
[2022-06-15] MEDS: Acetaminophen 325 MG TAB 650 MG PO ×2 (15:30→19:26)
[2022-06-15 15:45] VITALS: BP 115/80; PULSE 83; RESP 16; TEMP 36.6; O2SAT 100
--- NOTE | 2022-06-15 16:53 | W.ANESPOSTOP ---
Postoperative Evaluation Date, Time and Location Date Performed: 06/15/22 Time Performed: 16:54 Patient Location: Obstetrics Vital Signs Most Recent Imported Vital Signs: Most Recent Vital Signs Temp Pulse Resp BP Pulse Ox 36.6 C 83 16 115/80 100 06/15/22 15:45 06/15/22 15:45 06/15/22 15:45 06/15/22 15:45 06/15/22 15:45 Pain Score Most Recent Pain Score: Most Recent Pain Score Pain Level 4 06/15/22 13:52 Assessment Mental Status: Awake (Alert & Oriented to Patient Baseline) Airway and Respiratory Function: Patent airway with normal (patient baseline) respiratory exam Cardiovascular Function: Hemodynamically Stable Hydration Status: Adequately Hydrated Nausea & Vomiting: No Nausea or Vomiting Pain: Pain is tolerable per patient Peripheral Nerve Block: Patient did not receive a nerve block Postoperative Comments:: Some itching still. Patient denies discomfort. Reports feeling fine and denies questions.
[2022-06-15] MEDS: Ibuprofen 600 MG TAB PO (19:27)
[2022-06-15 19:29] VITALS: BP 120/80; PULSE 84; RESP 16; TEMP 36.6; O2SAT 96
[2022-06-16] MEDS: Acetaminophen 325 MG TAB 650 MG PO (01:41)
[2022-06-16] MEDS: Ibuprofen 600 MG TAB PO ×4 (01:41→20:34)
[2022-06-16 01:42] VITALS: BP 117/79; PULSE 73; TEMP 36.5
[2022-06-16] MEDS: oxyCODONE 5 mg/Acetaminophen 325 mg TAB PO ×4 (02:47→19:17)
[2022-06-16 03:49] VITALS: BP 124/86; PULSE 61; RESP 16; TEMP 36.4
[2022-06-16 08:11] VITALS: BP 122/76; PULSE 83; RESP 16; TEMP 36.7; O2SAT 97
[2022-06-16] MEDS: Docusate Sodium 100 MG CAP PO (09:52)
--- NOTE | 2022-06-16 10:54 | W.PM.OBPNV1 ---
Date of service: 06/16/22 Time of Service: 10:54 Assessment and Plan Assessment and plan (1) Status post primary low transverse section: Status: Acute Assessment and plan: Postoperative day #2 status post primary low-transverse section. Doing well. Working on breast-feeding. Ambulating. Passing gas. Anticipate discharge home tomorrow with ibuprofen, Percocet, Colace. All questions answered. Exam Physical Exam Vital signs: Temp Pulse Resp BP Pulse Ox 98.1 F 83 16 122/76 97 06/16/22 08:11 06/16/22 08:11 06/16/22 08:11 06/16/22 08:11 06/16/22 08:11 Vital Signs Reviewed: Yes Constitutional Constitutional: no acute distress Comments: Feeling well. Pain well controlled HEENT Exam HEENT Exam: Normal Neck Exam Neck Exam: Normal Respiratory Exam Respiratory Exam: Normal Cardiovascular Exam Cardiovascular Exam: Normal Abdominal Exam Comments: Soft, nontender, incision clean, dry, intact. Steri-Strips in place. No erythema or ecchymosis. Fundal Exam Fundus: Below Umbilicus and Firm Extremities Exam Extremity Exam: Normal and Edema (1+, bilateral); negative Calf Tenderness Skin Exam Skin Exam: Normal Neurological Exam Neurological Exam: Normal Psychiatric Exam Psychiatric Exam: Normal Results Hemoglobin/Hematocrit: Hgb 10.4 g/dL (11.2-15.7) L 06/15/22 06:35 Hct 30.8 % (36.0-46.0) L 06/15/22 06:35 Abnormal Lab Findings: Abnormal Labs 06/13/22 06/15/22 23:00 06:35 WBC 11.85 H RBC 3.85 L 3.41 L Hgb 10.4 L Hct 34.7 L 30.8 L MPV 12.5 H 12.7 H Absolute Neutrophils 8.90 H Absolute Monocytes 0.97 H
[2022-06-16 13:04] VITALS: BP 122/85; PULSE 85; RESP 16; TEMP 36.6
[2022-06-16 16:20] VITALS: BP 134/92; PULSE 86; RESP 16; TEMP 36.8; O2SAT 97
[2022-06-16 19:21] VITALS: BP 134/88; PULSE 82; RESP 16; TEMP 36.9; O2SAT 98
[2022-06-17] MEDS: Ibuprofen 600 MG TAB PO ×2 (01:59→10:11)
[2022-06-17] MEDS: oxyCODONE 5 mg/Acetaminophen 325 mg TAB PO ×2 (02:00→10:11)
[2022-06-17 08:29] VITALS: BP 126/88; PULSE 78; RESP 16; TEMP 36.6; O2SAT 97
--- NOTE | 2022-06-17 09:09 | W.PM.OBPNV1 ---
Date of service: 06/17/22 Time of Service: 09:10 Assessment and Plan Assessment and plan (1) Status post primary low transverse section: Status: Acute Assessment and plan: Postoperative day #3 status post primary low-transverse section. Doing well. No issues or concerns today. Discharge home. Follow-up in the office in 2 and 6 weeks. Prescriptions for ibuprofen, Percocet, Colace to the pharmacy. All questions answered. Exam Physical Exam Vital signs: Temp Pulse Resp BP Pulse Ox 97.9 F 78 16 126/88 97 06/17/22 08:29 06/17/22 08:29 06/17/22 08:29 06/17/22 08:29 06/17/22 08:29 Vital Signs Reviewed: Yes Narrative: Patient seen and examined this morning. Stable vital signs Constitutional Comments: Doing well, had a good night rest. Some left sided incisional discomfort. Lochia is physiologic. Breast-feeding without difficulty. HEENT Exam HEENT Exam: Normal Neck Exam Neck Exam: Normal Respiratory Exam Respiratory Exam: Normal Cardiovascular Exam Cardiovascular Exam: Normal Abdominal Exam Abdomen: Tender Comments: Incision is clean, dry, intact. Steri-Strips are in place Fundal Exam Fundus: Below Umbilicus and Firm Extremities Exam Extremity Exam: Normal and Edema (1+ lower extremity bilateral); negative Calf Tenderness Skin Exam Skin Exam: Normal Neurological Exam Neurological Exam: Normal Psychiatric Exam Psychiatric Exam: Normal Results Hemoglobin/Hematocrit: Hgb 10.4 g/dL (11.2-15.7) L 06/15/22 06:35 Hct 30.8 % (36.0-46.0) L 06/15/22 06:35 Abnormal Lab Findings: Abnormal Labs 06/13/22 06/15/22 23:00 06:35 WBC 11.85 H RBC 3.85 L 3.41 L Hgb 10.4 L Hct 34.7 L 30.8 L MPV 12.5 H 12.7 H Absolute Neutrophils 8.90 H Absolute Monocytes 0.97 H
--- NOTE | 2022-06-17 09:11 | W.PM.OBDISCH ---
Date of service: 06/17/22 Time of Service: 09:11 DS: Diagnosis Discharge Diagnosis (1) Status post primary low transverse section: Status: Acute Asessment and Plan: Patient is postoperative day #3 status post primary low transverse section for nonreassuring status. She had delivery of viable female infant named Tova. She had an uncomplicated postoperative course and was discharged home postoperative day #3 ambulating, tolerating a regular diet and oral pain medication with stable vital signs. Discharge Plan Disposition Patient Disposition: Home Condition: Good Discharge Details Reason For Visit: R/O ROM at Term Admit Date/Time: 06/13/22 22:53 Admit Provider: Angela Mccoy Attending Provider: Angela Mccoy Primary Care Provider: Elver Magdaleno Hospital Course Hospital Course: Patient was admitted after having spontaneous rupture of membranes for clear fluid. She progressed into a normal course of labor. She, during her labor progress, did receive an epidural for pain control. During the course of her labor she had an episode of bradycardia and was found to be at that time, 5 cm. Obstetric consultation was performed, and during the course of conversation regarding her labor progress, she had deep variable decelerations to the 60s. In light of these decelerations and being remote from delivery, the decision was made for primary section. She had an uncomplicated primary low-transverse section where she delivered a viable female with Apgars of 8 and 9. Her postoperative course was uncomplicated and she was discharged home postoperative day #3 ambulating, tolerating a regular diet, with stable vital signs. Her follow-up will be in the office in 2 and 6 weeks. Prescriptions were sent to the pharmacy. Home Meds and New Rx's Prescriptions: New ibuprofen 800 mg tablet 800 mg PO Q8H PRNQty: 60 0RF oxycodone-acetaminophen [Percocet] 5-325 mg tablet 1 tab PO Q8H PRNQty: 7 0RF docusate sodium [Colace] 100 mg capsule 100 mg PO BID Qty: 30 1RF Continued magnesium 200 mg tablet See Rx Instructions PO DAILY PRN Rx Instructions: 500 mg orally daily PRN; Zyrtec 10 mg capsule 10 mg PO DAILY PRN Rx Instructions: Patient takes PRN Plus 29 mg iron- 1 mg tablet 1 tab PO DAILY Qty: 90 5RF Discharge Instructions Stand Alone Forms: BC Instructions, BC Discharge Instruc Activity:: Pelvic rest and no heavy Equipment/Supplies:: No Equipment Needed Diet:: As Tolerated Discharge Orders Discharge Orders: Discharge Order (Routine); Ordered 06/17/22 Ordered By: Terri Degroot OB:DS Summary Summary Delivery Method: Unscheduled Contraception Discussed Contraception Discussed: Yes, Infant Gender-Baby A: Female Status at Discharge Functional status at discharge: independent ambulation Overall status at discharge: patient is progressing back to baseline Mental Status: mental status grossly normal Speech and Movement: speech and movement normal Mood: congruent mood Affect: normal affect Exam Physical Exam Vital signs: Temp Pulse Resp BP Pulse Ox 97.9 F 78 16 126/88 97 06/17/22 08:29 06/17/22 08:29 06/17/22 08:29 06/17/22 08:29 06/17/22 08:29 Narrative: See physical exam from progress note dated 06/17/2022 [facility] All Active Problems Status post primary low transverse section (Acute) Non-reassuring heart rate or rhythm affecting management of mother (Acute) Ruptured, membranes, premature (Acute) COVID-19 affecting in third trimester (Acute) Chronic left hip pain (Acute) (Chronic) Allergic rhinitis (Acute) Medical History 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 H/O staphylococcal pneumonia Hospitalized at age 7 Rotator cuff impingement syndrome of left shoulder Family History Mother No problems noted. Father Heart disease Hypertension Sister Depression Maternal Grandfather , 80s Stroke Paternal Grandfather , 80s Stroke Aneurysm Maternal Grandmother , age 94 Non Hodgkin's lymphoma Paternal Grandmother , age 90 No problems noted. Self Asthma related to exposure to horses Social History Smoking/Tobacco Use Status: Never Smoking risk assessment performed?: Yes Alcohol Intake: current Alcohol Intake frequency: 0-2 drinks per day Caregiver/Support person: No Household members: significant other Housing: house Communication Needs: None Do you need help understanding health information?: Rarely Pets and animals: Yes Pets and animals: dog(s) Sexually active: Yes Do you think of yourself as: straight/heterosexual Current gender identity: female What is your relationship status?: living with partner How often do you talk on the phone with friends or family?: once per week How often do you get together with friends or relatives?: twice per week How often do you attend yarsani or congregational services?: 1-3 times per year Do you belong to any clubs or organized social groups?: yes Panel score (0-1 are the most socially isolated patients): 3 What type of physical activity do you participate in: bicycling and running Duration: 30-45 minutes/day Frequency: 3-4 times per week Lay/Evangelical: No preference Special lay needs: No Seatbelt use: always Helmet use: Yes Helmet use: always Drive intox or ride w/intox school bus driver/teacher assistant: No Do you feel safe at home: Yes Do you feel safe in your relationship?: Yes Female Reproductive History Menstrual Age of Menarche: 15 History History 1 Para 0 Hx # Term Pregnancies 0 Multiple births 0 Hx # Pregnancies 0 Ectopic pregnancies 0 AB induced 0 Hx Number of Living Children 0 AB spontaneous 0 DS: Data Vitals/I&O Vitals and I&O: Vital Signs Temperature 97.9 F 06/17/22 08:29 Pulse 78 06/17/22 08:29 Pulse Rhythm Regular 06/17/22 08:29 Respiratory Rate 16 06/17/22 08:29 Respiratory Depth Normal 06/16/22 19:21 Blood Pressure 126/88 06/17/22 08:29 Blood Pressure Mean 100 06/17/22 08:29 Pulse Oximetry 97 06/17/22 08:29 Oxygen Delivery Method Room Air 06/14/22 21:22 Oxygen Flow Rate 0 06/14/22 21:22 Pain Level 6 06/17/22 02:00 Comment 06/14/22 11:04
[2022-06-17] MEDS: Docusate Sodium 100 MG CAP PO (10:11)
[2022-06-17 10:22] VITALS: BP 134/89; PULSE 78; RESP 16; TEMP 36.6; O2SAT 98
== END 2022-06-17 12:05 | disposition home or self-care (01) | DRG 788 ==
PROVIDERS: Obstetrics & Gynecology; Admitting Provider Advanced Practice Midwife; PCP Nurse Practitioner Family; Visit Provider Advanced Practice Midwife
PROC: (CPT 59514; principal; 2022-06-14 17:30)
DX: O42.02 Full-term premature rupture of membranes, onset of labor within 24 hours of rupture (principal); O76 Abnormality in fetal heart rate and rhythm complicating labor and delivery; Z37.0 Single live birth; Z3A.41 41 weeks gestation of pregnancy; O99.62 Diseases of the digestive system complicating childbirth; O99.52 Diseases of the respiratory system complicating childbirth; J30.9 Allergic rhinitis, unspecified; K59.00 Constipation, unspecified; Z86.16 Personal history of COVID-19; M25.552 Pain in left hip; G89.29 Other chronic pain; R12 Heartburn; O69.81X0 Labor and delivery complicated by cord around neck, without compression, not applicable or unspecified; O75.89 Other specified complications of labor and delivery
CPT/HCPCS: 59514; 36415; 85027; 86850; 86900; 86901; 87635; 85025; J0131; J0456; J0690; J1885; J2370; J2405; J2704